=== PATIENT | male | born 1970 ===

== ENCOUNTER 2021-12-09 12:45 | Outpatient (CLI) | payer OTHER ==
--- NOTE | 2021-12-12 08:51 | Cat Scan Report ---
CT ABDOMEN AND PELVIS WITHOUT CONTRAST HISTORY: HEMATURIA COMPARISON: None. TECHNIQUE: Axial CT images were obtained through the abdomen and pelvis without IV contrast. Sagittal and coronal reformatted images. All CT scans at this location are performed using CT dose reduction for ALARA by means of automated exposure control. FINDINGS: CT ABDOMEN: Lung Bases: Clear. Liver: There are 3 right hepatic lobe hypodensities compatible with cysts measuring up to 2.2 cm. No parenchymal liver disease or obvious mass is seen on noncontrast CT. Biliary: No significant abnormality. Spleen: No significant abnormality. Unenlarged. Pancreas: No significant abnormality. Adrenals: No significant abnormality. Kidneys: Both kidneys are normal size, contour and position. There is a large stone in the right nubia l pelvis measuring 1.9 x 2.1 x 1.2 cm. There are 3 stones in the mid to inferior right kidney measuri ng 1 mm, 7 mm and 5 mm. No ureteral stones or hydronephrosis is appreciated. The left kidney and jesu ecting system are unremarkable. Lymphatics: No lymphadenopathy. Vasculature: No significant abnormality. Bowel/Peritoneum: No significant abnormality. No free air. No free fluid. Normal appendix. Minimal si gmoid diverticulosis is noted. No evidence for diverticulitis. CT PELVIS: : The bladder, distal ureters and prostate gland are unremarkable. Osseous Structures: No significant abnormality. Additional Findings: None IMPRESSION: Right nephrolithiasis as described. No evidence for hydronephrosis. Scattered liver cysts. Mild sigmoid diverticulosis. Signer Name: Petros Kirk Jr, MD Signed: 12/12/2021 8:46 AM Workstation Name: [id number]
== END 2021-12-09 12:46 | disposition home or self-care (01) ==
LOC: CT 12:45 → EDSEX 12:45 → CT 12:46
PROVIDERS: ATTEND Urology
DX: N20.0 Calculus of kidney (principal); K76.89 Other specified diseases of liver; K57.30 Diverticulosis of large intestine without perforation or abscess without bleeding; R31.9 Hematuria, unspecified
CPT/HCPCS: 74176